=== PATIENT | female | born 1985 | race Caucasian/White ===

== ENCOUNTER 2018-01-23 08:00 | Inpatient (IN) | payer OTHER ==
[2018-01-23] MEDS ORDERED: MINERAL OIL PO PRN (08:43)
[2018-01-23] MEDS ORDERED: ePHEDrine SULFATE IV PRN (08:43)
[2018-01-23] MEDS ORDERED: LACTATED RINGERS 1,000 ML ONE (08:51)
[2018-01-23] MEDS ORDERED: PITOCin/NS 20 UNIT/1000ML DRIP 20,000 MILLIUNITS/1,000 ML BAG IV ONE (08:52)
[2018-01-23] MEDS ORDERED: PITOCin/NS 20 UNIT/1000ML DRIP 20 UNITS/1,000 ML BAG IV SCH (09:00)
[2018-01-23] MEDS ORDERED: PITOCin/NS 30 UNIT/500ML 30 UNITS/500 ML BAG IV SCH (09:00)
[2018-01-23] MEDS ORDERED: LACTATED RINGERS 1,000 ML IV SCH (09:00)
--- NOTE | 2018-01-23 09:02 | History and Physical Report ---
History of Present Illness Date of examination: 01/23/18 Date of admission: Contractions Chief complaint: Labor History of present illness: 32 year old female presents to L&D in advanced labor. Patient reports active movement. Pt. denies vaginal bleeding. Pt. states clear water has been leaking from vagina since 07:00 this morning. Patient has received care at [facility] and her records are available in L&D today. LMP 03/24/17. EDC 01/29/18. . Patient denies complications with her . Patient denies health problems. No current medications. NKDA. labs are as follows: A+, antibody screen negative, rubella immune, RPR nonreactive, hepatitis B surface antigen negative, HIV negative, Pap negative, GC negative, CT negative, GBS negative, Quad screen negative, glucose test WNL. 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 denies: smoking, alcohol abuse, prescription drug abuse, IV drug use - Obstetrical History Expected Date of Delivery: 01/29/18 Actual Gestation: 39 Week(s) 1 Day(s) : 4 Para: 3 Hx # Term Pregnancies: 4 Number of Pregnancies: 0 Spontaneous Abortions: 0 Induced : 0 Number of Living Children: 3 Medications and Allergies Allergies Allergy/AdvReac Type Severity Reaction Status Date / Time No Known Allergies Allergy Verified 12/02/13 14:49 Home Medications Medication Instructions Recorded Confirmed Last Taken Type Ibuprofen [Motrin 800 MG tab] 800 mg PO Q6H PRN #30 tablet 12/02/13 07/24/15 Unknown Rx Review of Systems All systems: negative (labor) - Vital Signs Vital signs: Vital Signs Pulse BP 99 H 125/77 01/23/18 08:29 01/23/18 08:29 Temp Pulse Resp BP Pulse Ox 99 H 125/77 01/23/18 08:29 01/23/18 08:29 - Physical Exam Breasts: Positive: deferred Cardiovascular: Regular rate, Normal S1, No murmurs Abdomen: Positive: normal appearance, soft. Negative: tenderness, guarding, rigidity Genitourinary (Female): Positive: normal external genitalia, normal perenium. Negative: perineal/vulvar lesions Vagina: Positive: other (clear fluid leaking from vagina) Cervix: Positive: other (7/80/-2) Uterus: Positive: enlarged. Negative: tender Anus/Rectum: Positive: normal perianal skin Extremities: Positive: normal. Negative: tenderness, edema - Obstetrical FHR: category 1 Uterine Contraction Monitor Mode: External Cervical Dilatation: 7 Cervical Effacement Percentage: 80 station: -2 Uterine Contraction Pattern: Regular Uterine Contraction Intensity: Moderate Results All other labs normal. Assessment and Plan A: at 39 weeks, 1 day gestation. Active labor. GBS negative. P: Admit. Anticipate .
[2018-01-23 09:21] LABS: Hematocrit 36.8 % (30.3-42.9); Hemoglobin 12.8 gm/dl (10.1-14.3); Mean Corpuscular HGB Conc 35 % (30-34); Mean Corpuscular Hemoglobin 33 pg (28-32); Mean Corpuscular Volume 94 fl (79-97); Platelet Count 122 K/mm3 (140-440); Red Blood Count 3.93 M/mm3 (3.65-5.03); Red Cell Distribution Width 14.8 % (13.2-15.2)
[2018-01-23] MEDS ORDERED: XYLOCAINE 2% INFILTRATI ONE (10:00)
[2018-01-23] MEDS ORDERED: SUBLIMAZE ONE (10:30)
[2018-01-23] MEDS ORDERED: SUBLIMAZE IV ONE (11:00)
[2018-01-23] MEDS ORDERED: LANSINOH TP PRN (14:13)
[2018-01-23] MEDS ORDERED: TYLENOL PO PRN (14:13)
[2018-01-23] MEDS ORDERED: TUCKS PAD TP PRN (14:13)
[2018-01-23] MEDS ORDERED: MILK OF MAGNESIA PO PRN (14:13)
[2018-01-23] MEDS: MOTRIN PO SCH (14:29)
--- NOTE | 2018-01-23 14:33 | Procedure Note ---
OB Delivery Note - Delivery Date of Delivery: 01/23/18 Surgeon: DYLON CARTAGENA Estimated blood loss: 300cc - Vaginal Delivery presentation: vertex Delivery position: OA Intrapartum events: hemorrhage (accessory lobe of placenta delivered some time after delivery, accompanied by hemorrhage which was resolved with Methergine and Cytotec) Delivery induction: none Delivery monitor: none Route of delivery: Delivery placenta: spontaneous Delivery cord: 3 umbilical vessels Episiotomy: none Delivery laceration: none Delivery comments: of liveborn female infant over intact perineum with apgars of 8/9. Thin meconium stained amniotic fluid. Baby was vigorous and began crying immediately after . Baby was bulb suctioned and secretions were wiped from nose and mouth with sterile towel. Baby was placed immediately on maternal chest for skin to skin time. 3 vessel cord was double clamped and cut. Cord blood obtained. Spontaneous delivery of intact placenta and membranes by friend mechanism. Pitocin to IV fluids after delivery of placenta. Fundus was firm and midline. Vaginal sweep was negative. Sponge counts were correct. Patient had delayed hemorrhage accompanied by accessory lobe of placenta some time time after . The PP hemorrhage was resolved with Methergine and Cytotec. Mother and baby are stable.
[2018-01-23] MEDS ORDERED: SODIUM CHLORIDE FLUSH SYRINGE 10 ML IV NR (15:00)
[2018-01-23] MEDS ORDERED: CYTOTEC ONE (15:07)
[2018-01-23] MEDS ORDERED: METHERGINE IM ONE ×2 (15:08→16:00)
[2018-01-23] MEDS ORDERED: DILAUDID IV ONE (15:17)
--- NOTE | 2018-01-23 15:22 | Post Operative Note ---
Pre-op diagnosis: retained placenta Post-op diagnosis: same Findings: Grape fruit sized retained placenta Procedure: Manual extraxction of retained placenta Anesthesia: none Surgeon: HEATHER RUIZ Estimated blood loss: other (300 mls) Pathology: none Specimen disposition: discarded Condition: stable Disposition: no change
[2018-01-23] MEDS ORDERED: CYTOTEC PR ONE (16:00)
[2018-01-23 17:03] LABS: Hematocrit 35.3 % (30.3-42.9); Hemoglobin 11.7 gm/dl (10.1-14.3)
[2018-01-23 21:02] LABS: Mean Corpuscular HGB Conc 33 % (30-34); Mean Corpuscular Hemoglobin 32 pg (28-32); Mean Corpuscular Volume 95 fl (79-97); Platelet Count 112 K/mm3 (140-440); Red Blood Count 3.15 M/mm3 (3.65-5.03); Red Cell Distribution Width 14.7 % (13.2-15.2)
[2018-01-23 21:32] LABS: Alanine Aminotransferase 8 units/L (7-56); Albumin 2.6 g/dL (3.9-5); BUN/Creatinine Ratio 18; Blood Urea Nitrogen 9 mg/dL (7-17); Calcium 8.6 mg/dL (8.4-10.2); Hemolysis Index 10
[2018-01-24] MEDS: MOTRIN PO SCH ×3 (00:03→12:30)
[2018-01-24 01:52] LABS: Hematocrit 27.5 % (30.3-42.9); Hemoglobin 9.7 gm/dl (10.1-14.3)
[2018-01-24] MEDS ORDERED: BOOSTRIX IM ONE (06:00)
--- NOTE | 2018-01-24 09:58 | Progress Note ---
Assessment and Plan A; PPD #1 - stable P: Discharge home today Subjective - Subjective Date of service: 01/24/18 Principal diagnosis: Patient reports: appetite normal [place]: doing well Objective - Vital Signs Latest vital signs: Vital Signs Temp Pulse Resp BP BP Pulse Ox 01/24/18 08:20 98.2 F 94 H 20 124/79 01/24/18 01:25 98.0 F 70 20 122/72 95 01/23/18 21:15 98.7 F 79 20 117/68 98 01/23/18 17:25 100.2 F H 80 20 146/80 99 01/23/18 17:13 85 137/74 01/23/18 16:58 78 140/75 01/23/18 16:43 81 146/82 01/23/18 16:36 85 145/85 01/23/18 16:28 72 151/91 01/23/18 16:13 82 150/90 01/23/18 15:58 83 156/93 01/23/18 15:49 88 160/87 01/23/18 15:43 103 H 175/97 01/23/18 15:28 77 128/77 01/23/18 15:13 69 124/75 01/23/18 14:58 83 123/71 01/23/18 14:43 85 126/69 01/23/18 14:28 80 133/91 01/23/18 14:18 79 126/80 01/23/18 13:58 85 134/92 01/23/18 13:43 78 136/85 Intake and Output 01/23/18 01/24/18 01/24/18 22:59 06:59 14:59 Intake Total 480 Balance 480 Intake: Oral 480 Other: Total, Intake Amount 240 Voiding Method Toilet # Voids Void 1 - Exam Breasts: Present: deferred Cardiovascular: Present: Regular rate Vulva: both: normal Uterus: Present: fundal height below umbilicus Extremities: Present: normal Deep Tendon Reflex Grade: Normal +2 - Labs Labs: Abnormal lab results 01/23/18 01/23/18 01/24/18 Range/Units 20:37 20:37 01:25 WBC 11.5 H (4.5-11.0) K/mm3 RBC 3.15 L (3.65-5.03) M/mm3 Hgb 10.0 L 9.7 L (10.1-14.3) gm/dl Hct 30.0 L 27.5 L (30.3-42.9) % Plt Count 112 L (140-440) K/mm3 Carbon Dioxide 19 L (22-30) mmol/L Creatinine 0.5 L (0.7-1.2) mg/dL Total Protein 5.1 L (6.3-8.2) g/dL Albumin 2.6 L (3.9-5) g/dL
--- NOTE | 2018-01-24 10:00 | Discharge Summary ---
Providers - Providers Date of Admission: 01/23/18 08:48 Date of discharge: 01/24/18 Attending physician: JEOVANNY LINDSEY MD Primary care physician: JEOVANNY LINDSEY MD Hospitalization Reason for admission: active labor Delivery: Episiotomy: none Laceration: none complications: none Discharge diagnosis: IUP at term delivered Elizabeth baby: female Condition at discharge: Good Disposition: DC-01 TO HOME OR SELFCARE Plan - Provider Discharge Summary Activity: routine, no sex for 6 weeks, no heavy lifting 4 weeks, no strenuous exercise Diet: routine Instructions: routine Additional instructions: [] Smoking cessation referral if applicable(refer to patient education folder for contact #) [] Refer to [facility] Booklet Call your doctor immediately for: * Fever > 100.5 * Heavy vaginal bleeding ( >1 pad per hour) * Severe persistent headache * Shortness of breath * Reddened, hot, painful area to leg or breast * Drainage or odor from incision. * Keep incision clean and dry at all times and follow doctor's instructions regarding bathing/showering - Follow up plan Follow up: JEOVANNY LINDSEY MD [Primary Care Provider] - 6 Weeks
[2018-01-24 16:12] VITALS: BP 114/72
== END 2018-01-24 16:00 | disposition home or self-care (01) | DRG 767 ==
LOC: TRG 08:00 → LD 08:48 → OB 17:23
PROVIDERS: ADMIT Obstetrics & Gynecology; ATTEND Obstetrics & Gynecology
PROC: 10E0XZZ Delivery of Products of Conception, External Approach (ICD-10-PCS; principal; 2018-01-23)
PROC: 10D17Z9 Manual Extraction of Products of Conception, Retained, Via Natural or Artificial Opening (ICD-10-PCS; 2018-01-23)
DX: O99.214 Obesity complicating childbirth (principal); O72.0 Third-stage hemorrhage; Z37.0 Single live birth; E66.9 Obesity, unspecified; Z68.39 Body mass index [BMI] 39.0-39.9, adult; Z83.3 Family history of diabetes mellitus; Z3A.39 39 weeks gestation of pregnancy; Z79.899 Other long term (current) drug therapy
CPT/HCPCS: 36415; 80053; 85014; 85018; 85027; 86592; 86850; 86900; 86901; 90471; 90715; J2210; J2590; J3010; J7120